=== PATIENT | female | born 1960 | race Caucasian/White ===

== ENCOUNTER → 2024-12-10 14:25 | Outpatient (REF) | payer OTHER, SELFPAY | LOC: HWWDC 14:25 | PROVIDERS: ATTENDING PHYSICIAN Physician Assistant Medical | DX: Z12.31 Encounter for screening mammogram for malignant neoplasm of breast (principal) | CPT/HCPCS: 77063; 77067 ==

== ENCOUNTER 2025-05-15 07:52 | Outpatient (RCR) | payer OTHER, SELFPAY | END 2025-05-15 23:59 | disposition home or self-care (01) | LOC: RPT 07:52 | PROVIDERS: ATTENDING PHYSICIAN Orthopaedic Surgery; FAMILY PHYSICIAN Physician Assistant Medical | DX: M75.112 Incomplete rotator cuff tear or rupture of left shoulder, not specified as traumatic (principal); Z73.6 Limitation of activities due to disability; M62.81 Muscle weakness (generalized) | CPT/HCPCS: 97110; 97162 ==